=== PATIENT | female | born 1980 | race Two or more races ===

== ENCOUNTER 2017-05-31 19:22 | Emergency (ER) | payer MEDICAID ==
[~2017-05-31] VITALS: Ht 157.5 cm; Wt 67.1 kg
[~2017-05-31 19:22] MED LIST: MACROBID100 MG ORAL; NKM
[2017-05-31] MEDS ORDERED: Tylenol #3 tab (300mg/30mg) ORAL ONE ×2 (19:45→20:30)
[2017-05-31 19:55] LABS: APPEARANCE,URINE SLIGHTLY CLOUDY; KETONES,URINE NEGATIVE (NEGATIVE); LEUKOCYTE ESTERASE ,URINE 1+ (NEGATIVE); NITRITE,URINE NEGATIVE (NEGATIVE); PH,URINE 7 (4.5-8.0); PROTEIN,URINE NEGATIVE (NEGATIVE); UROBILINOGEN,URINE NORMAL MG/DL (0.0-1.0)
--- NOTE | 2017-05-31 19:56 | Emergency Room Report ---
History of Present Illness General Chief Complaint: Headache Source: Patient Present Illness HPI 37 YO Female presents to the ED c/O progressive throbbing GREENE that is now 10/10 in severity localized in the frontal area with nasal congestion, sinus pressure , and n/v x 3 days. reports subjective fevers and chills. denies . denies recent travel , reports several ill contacts with sinus/nasal symptoms. pt. denies constipation, diarrhea, abdominal tenderness, dysuria, frequency or urgency. pt. reports trying several OTC medications none have been able to relieve her GREENE symptoms. pt. denies photophobia, blurry vision, flashing lights , loss of vision, or floaters. pt. denies hx of migraines. denies neck pain or neck stiffness. denies hitting her head or recent trauma, denies weakness or imbalance. denies blood in the vomit or stool, reports vomiting approx 3 x over the course of 3 days. Denies CP, Palpitations, LOC, AMS, dizziness, Changes in Vision, Sensation, paresthesias, or a sudden severe headache.. Allergies: Coded Allergies: No Known Allergies (Unverified , 07/16/14) Patient History Past Medical History: see triage record Past Surgical History: none Pertinent Family History: none Last Menstrual Period: may 17 Now: No : 3 Reviewed Nursing Documentation: PMH: Agreed, PSxH: Agreed Nursing Documentation-PMH Hx Gastrointestinal Problems: Yes - MISCARRIAGE 2013 Review of Systems All Other Systems: negative except mentioned in HPI Physical Exam Vital Signs Date Time Temp Pulse Resp B/P (MAP) Pulse Ox O2 Delivery O2 Flow Rate FiO2 05/31/17 19:25 97.9 77 18 127/84 98 Room Air Sp02 EP Interpretation: reviewed, normal General Appearance: no apparent distress, alert, GCS 15, non-toxic Head: normocephalic, atraumatic Eyes: bilateral eye normal inspection, bilateral eye PERRL ENT: hearing grossly normal, normal pharynx, normal voice, TMs + canals normal , uvula midline, moist mucus membranes, nasal congestion Neck: full range of motion Respiratory: lungs clear, normal breath sounds, speaking full sentences Cardiovascular #1: regular rate, rhythm Gastrointestinal: normal bowel sounds, non tender, soft Genitourinary: normal inspection, no CVA tenderness Musculoskeletal: back normal, gait/station normal, normal range of motion, non- tender Neurologic: alert, oriented x3, responsive, motor strength/tone normal, sensory intact, normal gait, speech normal, no pronator, other - negative pelayo's, equal ore trimmer strength, grossly normal Skin: normal color, no rash, warm/dry, well hydrated Lymphatic: no adenopathy Medical Decision Making PA Attestation Dr. Hernandez is my supervising Physician whom patient management has been discussed with. Diagnostic Impression: Primary Impression: UTI (lower urinary tract infection) Additional Impressions: Headache Qualified Codes: R51 - Headache Sinus headache Upper respiratory infection, viral Nausea & vomiting Qualified Codes: R11.2 - Nausea with vomiting, unspecified ER Course 37 YO Female presents to the ED c/O progressive throbbing GREENE that is now 10/10 in severity localized in the frontal area with nasal congestion, sinus pressure , and n/v x 3 days. reports subjective fevers and chills. denies . denies recent travel , reports several ill contacts with sinus/nasal symptoms. pt. denies constipation, diarrhea, abdominal tenderness, dysuria, frequency or urgency. pt. reports trying several OTC medications none have been able to relieve her GREENE symptoms. pt. denies photophobia, blurry vision, flashing lights , loss of vision, or floaters. pt. denies hx of migraines. denies neck pain or neck stiffness. denies hitting her head or recent trauma, denies weakness or imbalance. denies blood in the vomit or stool, reports vomiting approx 3 x over the course of 3 days. Denies CP, Palpitations, LOC, AMS, dizziness, Changes in Vision, Sensation, paresthesias, or a sudden severe headache.. Ddx considered but are not limited to migraine, SAH, sinus GREENE, , viral GE, UTI just to name a few. Vital signs: are WNL, pt. is afebrile H&PE are most consistent with sinus GREENE due to onset two days after onset of nasal congestion and rhinorrhea. pt. has a hx of GREENE that usually respond to OTC medications. no evidence of acute abdomen on PE. no focal neurological deficits at this time. no photosensitivity. no hx of trauma or fall. ORDERS: - UA: positive for UTI - Urine Hcg: Negative ED INTERVENTIONS: - Reglan PO -Tylenol PO DISCHARGE: At this time pt. is stable for d/c to home. Will provide printed patient care instructions, and any necessary prescriptions. Care plan and follow up instructions have been discussed with the patient prior to discharge. Labs Test 05/31/17 19:30 Urine Color Pale yellow Urine Appearance Slightly cloudy Urine pH 7 (4.5-8.0) Urine Specific [place] 1.015 (1.005-1.035) Urine Protein Negative (NEGATIVE) Urine Glucose (UA) Negative (NEGATIVE) Urine Ketones Negative (NEGATIVE) Urine Occult Blood 3+ (NEGATIVE) Urine Nitrite Negative (NEGATIVE) Urine Bilirubin Negative (NEGATIVE) Urine Urobilinogen Normal MG/DL (0.0-1.0) Urine Leukocyte Esterase 1+ (NEGATIVE) Urine RBC 2-4 /HPF (0 - 2) Urine WBC 15-20 /HPF (0 - 2) Urine Squamous Epithelial Cells Few /LPF (NONE/OCC) Urine Amorphous Sediment Few /LPF (NONE) Urine Bacteria Few /HPF (NONE) Urine HCG, Qualitative Negative Last Vital Signs Date Time Temp Pulse Resp B/P (MAP) Pulse Ox O2 Delivery O2 Flow Rate FiO2 05/31/17 19:25 97.9 77 18 127/84 98 Room Air Disposition: HOME, SELF-CARE Condition: Stable Scripts Nitrofurantoin Monohyd/M-Cryst* (MACROBID 100 MG*) 100 Mg Capsule 100 MG ORAL EVERY 12 HOURS for 5 Days, #10 CAP Prov: Sridevi Patterson 05/31/17 Acetaminophen* (TYLENOL EXTRA STRENGTH*) 500 Mg Tablet 500 MG ORAL Q6H Y for Mild Pain/Temp > 100.5, #20 TAB 0 Refills Prov: Sridevi Patterson 05/31/17 Fluticasone Furoate (FLONASE SENSIMIST) 9.9 Ml [place].susp 1 SPRAYS NS DAILY, #9.9 ML Prov: Sridevi Patterson.Deep 05/31/17 Metoclopramide Hcl* (REGLAN*) 10 Mg Tablet 10 MG ORAL THREE TIMES A DAY, #20 TAB Prov: Sridevi Patterson. 05/31/17 Patient Instructions: Nausea and Vomiting, Adult, [id number], Sinus Headache , Urinary Tract Infection Additional Instructions: Take medications as directed. Follow up with a Primary Care Provider in 3 days, even if your symptoms have resolved. --Please review list of primary care clinics, if you do not already have a primary care provider Return sooner to ED if new symptoms occur, or current symptoms become worse. - Please note that this Emergency Department Report was dictated using [employer] assembler technology software, occasionally this can lead to erroneous entry secondary to interpretation by the dictation equipment. Sridevi Patterson May 31, 2017 19:56
[2017-05-31] MEDS ORDERED: Excedrin Migraine tab ORAL ONE (20:00)
[2017-05-31 20:11] LABS: AMORPHOUS SEDIMENT,UR FEW /LPF; BACTERIA,URINE FEW /HPF; SQUAMOUS EPITHELIAL CELL,UR FEW /LPF (NONE/OCC); WBC,URINE 15-20 /HPF (0 - 2)
[2017-05-31] MEDS ORDERED: REGLAN10 MG ORAL (21:46)
[2017-05-31] MEDS ORDERED: FLONASE SENSIM9.9 ML NS (21:46)
[2017-05-31] MEDS ORDERED: TYLENOL EXTRA500 MG ORAL (21:46)
[2017-05-31] MEDS ORDERED: NITROFURANTOIN100 M2 ORAL (21:51)
[2017-05-31 21:56] VITALS: BP 124/81
== END 2017-05-31 21:50 | disposition home or self-care (01) ==
LOC: EMR 20:01
DX: N39.0 Urinary tract infection, site not specified (principal); J06.9 Acute upper respiratory infection, unspecified; R11.2 Nausea with vomiting, unspecified
CPT/HCPCS: 81003; 81025; 87086; 99284

== ENCOUNTER 2018-10-11 20:53 | Emergency (ER) | payer MEDICAID ==
[~2018-10-11] VITALS: Ht 160 cm; Wt 73.5 kg
[~2018-10-11 20:53] MED LIST changes: +FLONASE SENSIM9.9 ML NS; +NITROFURANTOIN100 M2 ORAL; +REGLAN10 MG ORAL; +TYLENOL EXTRA500 MG ORAL
[2018-10-11 21:10] VITALS: BP 149/94
--- NOTE | 2018-10-11 21:12 | Emergency Room Report ---
History of Present Illness General Chief Complaint: Lower Back Pain or Injury Source: Patient Present Illness HPI This is a 38-year-old female with no cerumen past mental history. She presents with chief complaint of dysuria, frequency, urgency anasarca blood yesterday. Onset for 2 days but she also has lower back pain. He was on the right side and moved to the left side. Worse with urination. Pain is 8 out of 10. Denies any fever or chills. Denies any nausea vomiting. Allergies: Coded Allergies: No Known Allergies (Unverified , 07/16/14) Patient History Past Medical History: see triage record, old chart reviewed Past Surgical History: none Pertinent Family History: none Social History: Denies: smoking Last Menstrual Period: 07/06/18 Now: No Immunizations: other Reviewed Nursing Documentation: PMH: Agreed; PSxH: Agreed Nursing Documentation-PMH Past Medical History: No History, Except For Hx Gastrointestinal Problems: Yes - MISCARRIAGE 2013 Review of Systems Eye: Denies: eye pain, blurred vision ENT: Denies: ear pain, nose congestion, throat swelling Respiratory: Denies: cough, shortness of breath Cardiovascular: Denies: chest pain, palpitations Gastrointestinal: Denies: abdominal pain, diarrhea, nausea, vomiting Genitourinary: Reports: dysuria, frequency, urgency Musculoskeletal: Denies: back pain, joint pain Skin: Denies: rash Neurological: Denies: headache, numbness Endocrine: Denies: increased thirst, increased urine Hematologic/Lymphatic: Denies: easy bruising All Other Systems: negative except mentioned in HPI Physical Exam Vital Signs Date Time Temp Pulse Resp B/P (MAP) Pulse Ox O2 Delivery O2 Flow Rate FiO2 10/11/18 20:56 98.4 96 22 149/94 96 Room Air vitals unremarkable Sp02 EP Interpretation: reviewed, normal General Appearance: well appearing, no apparent distress, alert Head: normocephalic, atraumatic Eyes: bilateral eye PERRL, bilateral eye EOMI ENT: hearing grossly normal, normal pharynx Neck: full range of motion, supple, no meningismus Respiratory: chest non-tender, lungs clear, normal breath sounds Cardiovascular #1: regular rate, rhythm, no murmur Gastrointestinal: normal bowel sounds, non tender, no mass, no organomegaly, no bruit, non-distended Musculoskeletal: back normal, gait/station normal, normal range of motion Psychiatric: mood/affect normal Skin: warm/dry Medical Decision Making Diagnostic Impression: Primary Impression: Ureteral calculus, left ER Course Patient present with symptoms consistent with mostly left flank pain and urinary urgency. CT scan showed a 3 mm left UVJ stone. Her pain is well- controlled now. There is some perinephric stranding so I will put her on some antibiotics. Dose of antibiotics given here. No evidence of nephritis or sepsis. CT/MRI/US Diagnostic Results CT/MRI/US Diagnostic Results : Imaging Test Ordered: CT abdomen and pelvis Impression Read by radiologist. 3 mm stone at the left UVJ with mild hydronephrosis. Last Vital Signs Date Time Temp Pulse Resp B/P (MAP) Pulse Ox O2 Delivery O2 Flow Rate FiO2 10/11/18 20:56 98.4 96 22 149/94 96 Room Air Status: improved Disposition: HOME, SELF-CARE Condition: Stable Scripts Tamsulosin HCl (Flomax) 0.4 Mg Cap.er.24h 0.4 MG ORAL DAILY, #21 CAP Prov: Alfred Cee MD 10/11/18 Cephalexin* (KEFLEX*) 500 Mg Capsule 500 MG ORAL TID, #21 CAP Prov: Alfred Cee MD 10/11/18 Hydrocodone/Acetaminophen 5-325* (HYDROCODONE/ACETAMINOPHEN 5-325*) 1 Each Tablet 1 TAB ORAL Q6H PRN for For Pain, #15 TAB 0 Refills Prov: Alfred Cee MD 10/11/18 Additional Instructions: Increase fluids. Avoid sodas. Follow-up with your doctor within a week. You may need a referral to see a urologist to return for increasing pain, fever, or unable to urinate. Alfred Cee MD Oct 11, 2018 21:12
[2018-10-11] MEDS ORDERED: Phenazopyridine 200mg tab ORAL ONE (21:15)
[2018-10-11] MEDS ORDERED: Cephalexin 500mg cap ORAL ONE (21:15)
[2018-10-11 21:29] LABS: BILIRUBIN, URINE NEGATIVE (NEGATIVE); COLOR,URINE AMBER; GLUCOSE, URINE (UA) NEGATIVE (NEGATIVE); KETONES,URINE NEGATIVE (NEGATIVE); LEUKOCYTE ESTERASE ,URINE 1+ (NEGATIVE); NITRITE,URINE NEGATIVE (NEGATIVE); PH,URINE 6 (4.5-8.0); PROTEIN,URINE 1+ (NEGATIVE); UROBILINOGEN,URINE NORMAL MG/DL (0.0-1.0)
[2018-10-11 21:33] LABS: APPEARANCE,URINE SLIGHTLY CLOUDY
[2018-10-11] MEDS ORDERED: HYDROCODON-ACE1 EA15 ORAL (22:20)
[2018-10-11] MEDS ORDERED: FLOMAX0.4 MG ORAL (22:20)
[2018-10-11] MEDS ORDERED: CEPHALEXIN500 MG ORAL (22:20)
[2018-10-11 22:38] VITALS: BP 149/94
--- NOTE | 2018-10-12 09:33 | Diagnostic Imaging Report ---
Indication: Dysuria, frequency, urgency, hematuria, back pain Technique: Spiral acquisitions obtained through the abdomen and pelvis. No oral or IV contrast utilized, per urinary stone protocol. Multiplanar reconstructions were generated. Total dose length product 922.71 mGycm. CTDIvol(s) 17.93 mGy. Dose reduction achieved using automated exposure control Comparison: none Findings: There is a 3 mm calculus in the left distal ureteral orifice. There is resultant mild hydroureter and mild hydronephrosis. There is slight periureteral fat stranding. No significant perinephric fat stranding. No intrarenal calculi demonstrated. No right renal or ureteral calculi. Lack of IV contrast limits assessment of the renal parenchyma. No gross renal parenchymal mass or cyst demonstrated. Lack of IV contrast limits assessment of the other solid organs. The liver, gallbladder, bile ducts, pancreas, adrenals are unremarkable. Spleen demonstrates a subcentimeter low-attenuation lesion which is too small to characterize. No retroperitoneal or mesenteric mass or adenopathy. No pelvic mass or adenopathy. Uterus and ovaries are unremarkable. The appendix is normal. No evidence of diverticulosis or diverticulitis. No small bowel distention. No free or loculated intraperitoneal gas or fluid is evident. The stomach, duodenum, distal esophagus are unremarkable. The included lung bases are clear. Impression: Positive for 3 mm left distal ureteral calculus. There is results in mild hydronephrosis and hydroureter. No other significant abnormality This agrees with the preliminary interpretation provided overnight by [facility] teleradiology service. The CT scanner at [facility] is accredited by the [employer] and the scans are performed using protocols designed to limit radiation exposure to as low as reasonably achievable to attain images of sufficient resolution adequate for diagnostic evaluation.
== END 2018-10-11 22:39 | disposition home or self-care (01) ==
LOC: EMR 21:24
DX: N13.2 Hydronephrosis with renal and ureteral calculous obstruction (principal); M54.5 Low back pain
CPT/HCPCS: 74176; 81003; 81025; 99284

== ENCOUNTER 2020-05-28 17:33 | Emergency (ER) | payer MEDICAID ==
[~2020-05-28] VITALS: Ht 160 cm; Wt 80.7 kg
[~2020-05-28 17:33] MED LIST changes: +CEPHALEXIN500 MG ORAL; +FLOMAX0.4 MG ORAL; +HYDROCODON-ACE1 EA15 ORAL
--- NOTE | 2020-05-28 18:09 | NUR ---
ED Nurse Note: PT walked in from home with a steady gait. Her vitals are stable on RA. she has co headache since 05/17. 01/29 pain. no changes with light or movement.
[2020-05-28 18:11] VITALS: BP 130/75
[2020-05-28] MEDS ORDERED: Azithromycin 250mg tab ORAL ONE (18:30)
[2020-05-28] MEDS ORDERED: Ketorolac 30mg Inj IM ONE (18:30)
[2020-05-28 18:53] LABS: BILIRUBIN, URINE NEGATIVE (NEGATIVE); COLOR,URINE PALE YELLOW; GLUCOSE, URINE (UA) NEGATIVE (NEGATIVE); KETONES,URINE NEGATIVE (NEGATIVE); LEUKOCYTE ESTERASE ,URINE NEGATIVE (NEGATIVE); NITRITE,URINE NEGATIVE (NEGATIVE); PH,URINE 7 (4.5-8.0); PROTEIN,URINE NEGATIVE (NEGATIVE); UROBILINOGEN,URINE 1 MG/DL (0.0-1.0)
[2020-05-28 18:58] LABS: APPEARANCE,URINE CLEAR
--- NOTE | 2020-05-28 19:08 | NUR ---
HAND-OFF: Report given to Chuck Kraft.
--- NOTE | 2020-05-28 19:15 | Emergency Room Report ---
History of Present Illness General Chief Complaint: Headache Present Illness HPI 40-year-old female with no significant past medical history here complaining of about 2weeks frontal headache around sinuses radiating to the eyes and posterior headache. Reports that the pain is worse when her head forward and trying to change position from supine to seated. Complains of occasional nausea. Has not taken medication for symptom relief other than Advil. Denies vision changes, photophobia, trauma. Denies , abdominal pain, cough, diarrhea, loss of taste or smell. Patient also has an appointment to get tested for Covid in 1 day. Denies vertigo and dizziness. Denies tinnitus. Denies unilateral or generalized weakness. Allergies: Coded Allergies: No Known Allergies (Unverified , 07/16/14) COVID-19 Screening Contact w/high risk pt: No Experienced COVID-19 symptoms?: No COVID-19 Testing performed [employer]: No Patient History Past Medical History: see triage record Past Surgical History: none Pertinent Family History: none Now: No Immunizations: UTD Reviewed Nursing Documentation: PMH: Agreed; PSxH: Agreed Nursing Documentation-PMH Hx Gastrointestinal Problems: Yes - MISCARRIAGE 2013 Review of Systems All Other Systems: negative except mentioned in HPI Physical Exam Vital Signs Date Time Temp Pulse Resp B/P (MAP) Pulse Ox O2 Delivery O2 Flow Rate FiO2 05/28/20 17:33 98.4 81 18 132/78 (96) 99 Sp02 EP Interpretation: reviewed, normal General Appearance: no apparent distress, alert, GCS 15, non-toxic Head: normocephalic, atraumatic Eyes: bilateral eye normal inspection, bilateral eye PERRL ENT: hearing grossly normal, normal pharynx, no angioedema, normal voice Neck: full range of motion, supple/symm/no masses Respiratory: chest non-tender, lungs clear, normal breath sounds, speaking full sentences Cardiovascular #1: regular rate, rhythm, no edema Cardiovascular #2: 2+ carotid (R), 2+ carotid (L), 2+ radial (R), 2+ radial (L), 2+ dorsalis pedis (R), 2+ dorsalis pedis (L) Gastrointestinal: normal bowel sounds, non tender, soft, non-distended, no guarding, no rebound Musculoskeletal: back normal Neurologic: alert, motor strength/tone normal, oriented x3, sensory intact, responsive, speech normal Psychiatric: judgement/insight normal, memory normal, mood/affect normal, no suicidal/homicidal ideation Skin: no rash Lymphatic: no adenopathy Medical Decision Making PA Attestation All my diagnosis and treatment plans were reviewed ad discussed with my supervising physician Dr. Alarcon Diagnostic Impression: Primary Impression: Sinus headache ER Course 40-year-old female with no significant past medical history here complaining of about 2weeks frontal headache around sinuses radiating to the eyes and posterior headache. Reports that the pain is worse when her head forward and trying to change position from supine to seated. Complains of occasional nausea. Has not taken medication for symptom relief other than Advil. Denies vision changes, photophobia, trauma. Denies , abdominal pain, cough, diarrhea, loss of taste or smell. Patient also has an appointment to get tested for Covid in 1 day. Denies vertigo and dizziness. Denies tinnitus. Denies unilateral or generalized weakness. Ddx considered but are not limited to: Sinus headache, migraine headache with aura, migraine headache without aura, tension headache, cluster headache, TBI, subarachnoid hemorrhage Vital signs: are WNL, pt. is afebrile H&PE are most consistent with: Sinus headache ORDERS: Prednisone, azithromycin due to symptoms being prolonged, Zofran ER intervention: Toradol, prednisone DISCHARGE: At this time pt. is stable for d/c to home. Will provide printed patient care instructions, and any necessary prescriptions. Care plan and follow up instructions have been discussed with the patient prior to discharge. Patient provider, this's notes, and patient presents with sinus type headache. However advised patient to follow primary doctor further evaluation may be needed. If worsening symptoms return to the emergency room Last Vital Signs Date Time Temp Pulse Resp B/P (MAP) Pulse Ox O2 Delivery O2 Flow Rate FiO2 05/28/20 18:11 98.6 16 130/75 99 05/28/20 17:33 81 Disposition: HOME, SELF-CARE Condition: Stable Scripts Ondansetron (Zofran) 4 Mg Tablet 4 MG ORAL Q6H PRN for Nausea & Vomiting, #14 TAB Prov: Dorinda Vang 05/28/20 Prednisone* (PREDNISONE*) 20 Mg Tablet 40 MG ORAL DAILY for 5 Days, #10 TAB Prov: Dorinda Vang 05/28/20 Azithromycin* (ZITHROMAX*) 250 Mg Tablet 250 MG ORAL DAILY, #6 TAB 0 Refills Take two tables once daily for 1 day, then one tablet once daily for 4 days. Prov: Dorinda Vang 05/28/20 Referrals: NOT CHOSEN IPA/,REFERRING (PCP) Patient Instructions: Sinus Headache Additional Instructions: Take medication as directed, follow primary care provider, if worsening symptoms return to the emergency room Dorinda Vang May 28, 2020 19:15
[2020-05-28] MEDS ORDERED: PREDNISONE20 MG ORAL (19:16)
[2020-05-28] MEDS ORDERED: ZITHROMAX250 MG ORAL (19:16)
[2020-05-28] MEDS ORDERED: ZOFRAN4 M1 ORAL (19:16)
[2020-05-28 19:20] VITALS: BP 130/75
--- NOTE | 2020-05-28 19:20 | NUR ---
ER DISCHARGE NOTE: Patient is cleared to be discharged per ERMD, pt is aox4, on room air, with stable vital signs. pt was given dc and prescription instructions, pt was able to verbalize understanding, pt id band removed. pt is able to ambulate with steady gait. pt took all belongings.
== END 2020-05-28 19:20 | disposition home or self-care (01) ==
LOC: EMR 18:12
DX: R51.9 Headache, unspecified (principal); R11.0 Nausea
CPT/HCPCS: 81003; 81025; 96372; J1885; J7512; Z7502; 99283